=== PATIENT | male | born 1940 ===

== ENCOUNTER → 2017-01-01 | Outpatient (CLI) | payer OTHER ==
[~2017-01-01] MED LIST: ASPI81TA28 PO; FELO5TAB PO; NXM/40 PO; ROSU20TA PO
[2017-01-01 09:35] LABS: BASO % 0.6 %; BASO ABS # 0.04 K/uL (0-0.2); COMPLETE YES; EOS % 6.2 %; HEMATOCRIT 39.7 % (42-52); IG% 0.1 %; LYMPH % 26.2 %; LYMPH ABS # 1.85 K/uL (1.2-3.4); MEAN CORPUSCULAR HGB CONC 35.3 g/dl (32-36); MEAN PLATELET VOLUME 9.4 fL (7.4-10.4); MONO % 8.8 %; NEUT % 58.1 %; PLATELET COUNT 242 K/uL (130-400); RED BLOOD COUNT 4.51 M/uL (4.7-6.1); WHITE BLOOD COUNT 7.06 K/uL (4.8-10.8)
[2017-01-01 09:49] LABS: ALB/GLOB RATIO 1.2 (0.9-2); ALT/SGPT 37 U/L (12-78); AST/SGOT 21 U/L (15-37); BLOOD UREA NITROGEN 15 mg/dl (7-18); BUN/CREATININE RATIO 16.4 (10-20); CARBON DIOXIDE 28 mmol/L (21-32); CHLORIDE 108 mmol/L (98-107); CHOLESTEROL 109 mg/dl (0-200); CREATININE 0.92 mg/dl (0.60-1.40); GLUCOSE 90 mg/dl (70-99); POTASSIUM 3.8 mmol/L (3.5-5.1); SODIUM 142 mmol/L (136-145); TRIGLYCERIDES 120 mg/dl (0-150); VERY LOW DENSITY LIPOPROT CALC 24 mg/dl
[2017-01-01 09:53] LABS: CALCIUM 8.9 mg/dl (8.5-10.1)
[2017-01-01 09:59] LABS: ALKALINE PHOSPHATASE 107 U/L (45-117); CHOLESTEROL/HDL RATIO 3.1; HDL CHOLESTEROL 35 mg/dl; LDL CHOLESTEROL CALCULATED 50 mg/dl
== END | disposition home or self-care (01) ==
LOC: C.LAB1850 07:43
PROVIDERS: ATTEND Nurse Practitioner Family
DX: I10 Essential (primary) hypertension (principal); E78.5 Hyperlipidemia, unspecified; I65.29 Occlusion and stenosis of unspecified carotid artery; E04.1 Nontoxic single thyroid nodule

== ENCOUNTER → 2017-01-07 | Outpatient (CLI) | payer OTHER | END | disposition home or self-care (01) | LOC: C.LAB1850 09:45 | PROVIDERS: ATTEND Nurse Practitioner Family | DX: M62.838 Other muscle spasm (principal) ==

== ENCOUNTER → 2017-03-02 | Outpatient (CLI) | payer OTHER | END | disposition home or self-care (01) | LOC: C.LAB1850 15:31 | PROVIDERS: ATTEND Urology | DX: C61 Malignant neoplasm of prostate (principal) ==

== ENCOUNTER → 2017-04-06 | Outpatient (CLI) | payer OTHER ==
[~2017-04-06] MED LIST changes: +OPTIRAY 320 IV PRN
--- NOTE | 2017-04-06 14:25 | DIAGNOSTIC IMAGING REPORT ---
CT OF THE ABDOMEN AND PELVIS WITH CONTRAST CLINICAL HISTORY: Lower abdominal pain. Prostate cancer. COMPARISON STUDY: Whole-body bone scan August 16, 2014. TECHNIQUE: Following IV administration of 94 mL of Optiray-320, axial images of the abdomen and pelvis were obtained from the lung bases to the proximal femurs. Images were reviewed in the axial, sagittal, and coronal planes. IV contrast was administered without complication. A dose lowering technique was utilized adhering to the principles of ALARA. Oral contrast was administered. CT DOSE: 655.80 mGycm FINDINGS: The heart is mildly enlarged. The liver, spleen, adrenal glands, left kidney and pancreas are unremarkable. There is a 1.6 cm water attenuation lesion arising from the lower pole of the right kidney which is consistent with a cyst. There is no peripancreatic or pericholecystic infiltration. The caliber and wall thickness of small and large bowel are normal. There is sigmoid diverticulosis without evidence of acute diverticulitis. Appendix is normal. The prostate is surgically absent. No enlarged abdominal or pelvic lymph nodes are present. There are no suspicious osseous lesions. Mild bladder wall thickening is noted. IMPRESSION: 1. No acute process within the abdomen or pelvis. 2. Extensive sigmoid diverticulosis without evidence of acute diverticulitis. 3. No evidence of metastatic disease within the abdomen or pelvis. 4. Mild bladder wall thickening which is nonspecific and could be correlated with urinalysis. Electronically signed by: Salazar Peoples M.D. 04/06/2017 2:23 PM Dictated Date/Time: 04/06/2017 2:13 PM
== END | disposition home or self-care (01) ==
LOC: C.CTS 11:31
PROVIDERS: ATTEND Nurse Practitioner
DX: C61 Malignant neoplasm of prostate (principal); R10.30 Lower abdominal pain, unspecified; K57.30 Diverticulosis of large intestine without perforation or abscess without bleeding

== ENCOUNTER → 2017-05-19 | Outpatient (CLI) | payer OTHER ==
[~2017-05-19] MED LIST changes: -OPTIRAY 320 IV PRN
== END | disposition home or self-care (01) ==
LOC: C.PATHSPEC 17:03
PROVIDERS: ATTEND Nurse Practitioner Adult Health
DX: R31.0 Gross hematuria (principal)

== ENCOUNTER → 2017-07-10 | Outpatient (CLI) | payer OTHER ==
[2017-07-10 09:36] LABS: BASO % 0.4 %; BASO ABS # 0.03 K/uL (0-0.2); COMPLETE YES; EOS % 6.3 %; HEMATOCRIT 42.4 % (42-52); IG% 0.3 %; LYMPH % 25.3 %; LYMPH ABS # 1.88 K/uL (1.2-3.4); MEAN CELL VOLUME 87.2 fL (80-100); MEAN CORPUSCULAR HEMOGLOBIN 30.5 pg (25-34); MEAN CORPUSCULAR HGB CONC 34.9 g/dl (32-36); MEAN PLATELET VOLUME 9.7 fL (7.4-10.4); NEUT % 57.7 %; PLATELET COUNT 240 K/uL (130-400); RED BLOOD COUNT 4.86 M/uL (4.7-6.1); WHITE BLOOD COUNT 7.43 K/uL (4.8-10.8)
[2017-07-10 10:03] LABS: BLOOD UREA NITROGEN 16 mg/dl (7-18); BUN/CREATININE RATIO 17.7 (10-20); CALCIUM 9.1 mg/dl (8.5-10.1); CARBON DIOXIDE 26 mmol/L (21-32); CHLORIDE 107 mmol/L (98-107); CHOLESTEROL 121 mg/dl (0-200); CREATININE 0.92 mg/dl (0.60-1.40); GLUCOSE 97 mg/dl (70-99); POTASSIUM 3.4 mmol/L (3.5-5.1); SODIUM 140 mmol/L (136-145); TRIGLYCERIDES 116 mg/dl (0-150); VERY LOW DENSITY LIPOPROT CALC 23 mg/dl
[2017-07-10 10:13] LABS: ALB/GLOB RATIO 1.1 (0.9-2); ALKALINE PHOSPHATASE 86 U/L (45-117); ALT/SGPT 29 U/L (12-78); AST/SGOT 20 U/L (15-37); CHOLESTEROL/HDL RATIO 2.9; HDL CHOLESTEROL 42 mg/dl; LDL CHOLESTEROL CALCULATED 56 mg/dl
== END | disposition home or self-care (01) ==
LOC: C.LAB1850 08:13
PROVIDERS: ATTEND Nurse Practitioner Family
DX: C61 Malignant neoplasm of prostate (principal); I10 Essential (primary) hypertension; E78.5 Hyperlipidemia, unspecified; E04.1 Nontoxic single thyroid nodule

== ENCOUNTER → 2017-10-12 | Outpatient (CLI) | payer OTHER ==
[2017-10-12 15:48] LABS: BLOOD UREA NITROGEN 17 mg/dl (7-18); CREATININE 1.39 mg/dl (0.60-1.40)
== END | disposition home or self-care (01) ==
LOC: C.LAB1850 14:31
DX: C61 Malignant neoplasm of prostate (principal); H93.19 Tinnitus, unspecified ear

== ENCOUNTER → 2017-10-15 | Outpatient (CLI) | payer OTHER ==
[~2017-10-15] MED LIST changes: +GADAVIST IV PRN
--- NOTE | 2017-10-15 15:37 | DIAGNOSTIC IMAGING REPORT ---
BRAIN COMBO FOR IAC CLINICAL HISTORY: H90.3 Sensorineural hearing loss (SNHL) of both [id number] hearing loss TECHNIQUE: Multi axial MRI acquisition pre and post gadolinium enhancement COMPARISON STUDY: None FINDINGS: Signal characteristics of the diffusion images are unremarkable. No acute ischemic event. Mild age-related atrophy and chronic small vessel change. Several foci of increased signal in the periventricular and deep white matter regions again without the age-related. No abnormal postcontrast enhancement. The internal auditory canals are normal. The 7th and 8th nerves are normal. No abnormal postcontrast enhancement. The sella and parasellar regions are unremarkable. IMPRESSION: 1. Negative MRI of the brain for age. 2. Mild age-related atrophy and chronic small vessel change. 3. Normal internal auditory canals. 4. No abnormal postcontrast enhancement. The above report was generated using voice recognition software. It may contain grammatical, syntax or spelling errors. Electronically signed by: Minh Huber M.D. 10/15/2017 3:36 PM Dictated Date/Time: 10/15/2017 3:31 PM
== END | disposition home or self-care (01) ==
LOC: C.MRI 14:13
DX: H90.3 Sensorineural hearing loss, bilateral (principal)

== ENCOUNTER → 2017-10-30 | Outpatient (CLI) | payer OTHER ==
[~2017-10-30] MED LIST changes: -GADAVIST IV PRN
== END | disposition home or self-care (01) ==
LOC: C.LAB1850 15:44
PROVIDERS: ATTEND Urology
DX: C61 Malignant neoplasm of prostate (principal)

== ENCOUNTER → 2018-01-13 | Outpatient (CLI) | payer OTHER ==
[2018-01-13 09:46] LABS: BASO % 0.2 %; BASO ABS # 0.02 K/uL (0-0.2); EOS % 4.5 %; EOS ABS # 0.42 K/uL (0-0.5); HEMATOCRIT 40.9 % (42-52); HEMOGLOBIN 14.8 g/dL (14.0-18.0); IG# 0.01 K/uL (0.00-0.02); LYMPH % 25.1 %; LYMPH ABS # 2.33 K/uL (1.2-3.4); MEAN CELL VOLUME 84.7 fL (80-100); MEAN CORPUSCULAR HEMOGLOBIN 30.6 pg (25-34); MEAN CORPUSCULAR HGB CONC 36.2 g/dl (32-36); MEAN PLATELET VOLUME 9.4 fL (7.4-10.4); MONO % 7.7 %; MONO ABS # 0.71 K/uL (0.11-0.59); NEUT % 62.4 %; NEUT ABS # 5.79 K/uL (1.4-6.5); PLATELET COUNT 237 K/uL (130-400); RED CELL DISTRIBUTION WIDTH CV 13.7 % (11.5-14.5); RED CELL DISTRIBUTION WIDTH SD 42.2 fL (36.4-46.3); WHITE BLOOD COUNT 9.28 K/uL (4.8-10.8)
[2018-01-13 10:07] LABS: ALBUMIN 4.3 gm/dl (3.4-5.0); ALT/SGPT 33 U/L (12-78); AST/SGOT 23 U/L (15-37); BLOOD UREA NITROGEN 16 mg/dl (7-18); CALCIUM 8.7 mg/dl (8.5-10.1); CARBON DIOXIDE 26 mmol/L (21-32); CHOLESTEROL 108 mg/dl (0-200); CREATININE 0.95 mg/dl (0.60-1.40); GLUCOSE 108 mg/dl (70-99); POTASSIUM 3.4 mmol/L (3.5-5.1); SODIUM 140 mmol/L (136-145)
[2018-01-13 10:18] LABS: ALKALINE PHOSPHATASE 101 U/L (45-117); LDL CHOLESTEROL CALCULATED 50 mg/dl; TOTAL PROTEIN 8.2 gm/dl (6.4-8.2)
== END | disposition home or self-care (01) ==
LOC: C.LAB1850 08:34
PROVIDERS: ATTEND Nurse Practitioner Family
DX: I10 Essential (primary) hypertension (principal); E78.5 Hyperlipidemia, unspecified; E04.1 Nontoxic single thyroid nodule; C61 Malignant neoplasm of prostate